=== PATIENT | male | born 1975 | race Caucasian/White ===

== ENCOUNTER → 2016-06-05 | Outpatient (CLI) | payer BC ==
[~2016-06-05] MED LIST: MIDODRINE HCL5 MG PO; MULTI VITAMIN1 EACH PO; PEPCID DPS20 MG PO; SANDOSTATI100 MCG/ML SQ
== END | disposition home or self-care (01) ==
LOC: PTH.S 08:24
DX: K72.10 Chronic hepatic failure without coma (principal)

== ENCOUNTER → 2016-07-04 | Outpatient (CLI) | payer BC | END | disposition home or self-care (01) | LOC: PTH.S 06-29 16:00 | DX: K72.10 Chronic hepatic failure without coma (principal) ==

== ENCOUNTER 2016-07-23 13:48 | Emergency (ER) | payer BC ==
--- NOTE | 2016-07-25 01:33 | ER ---
ADMIT: 07/23/2016 RM/LOC: [facility] MR#: [id number] [facility] [address] [place], [place] [address] JANET VASQUEZ [address] [place] [address] Emergency Room Report SEX: M AGE: 40 : 1975 DATE: 07/23/2016 TIME: 1348 hours. Please refer to my T-sheet for complete H and P. Briefly, the patient is a 40-year-old who has a known history of alcoholic cirrhosis. He has had encephalopathy 2 or 3 times. 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 Comes in this morning. His was gone, she called and arrived at work and he would not answer at home. She went home, found him confused. He had not taken his dose of lactulose this morning, but she gave him the noon dose and brought him in. By the time he gets here, he was feeling better. He says he is having no complaints at this time. PHYSICAL EXAMINATION: VITAL SIGNS: Blood pressure 112/68, pulse 59, respirations 18, temp , saturating 100%. GENERAL: No acute distress. HEENT: Grossly normal. LUNGS: Clear. HEART: Regular. ABDOMEN: Soft. SKIN: No rash except for he is icteric. NEURO: He is alert now nonfocal. EMERGENCY ROOM COURSE: He did complain of a headache. I did do a CT scan that revealed no acute changes except for sinusitis. CBC was normal except hemoglobin 9.7, platelets 127. Hemoglobin is stable. His platelets are slightly lower than they were before. Chemistries normal except glucose 116, creatinine 2.1, AST 101, total bilirubin 7.2, alkaline phosphatase 266 most of which are all within his norm. His INR was 1.38, PT 14.5, PTT 31.3. Ammonia was 30. He took his lactulose while he was here. Again I gave him a second dose, he was doing much better. I had a long discussion. He was ready for discharge. ASSESSMENT: 1. Confusion, resolved. 2. Hepatic encephalopathy. Improved now with his lactulose. 3. Thrombocytopenia which is a little worse than usual. 4. Nicotine abuse. 5. Sinusitis. PLAN: Stop smoking. Amoxil 500 t.i.d. for 7 days. Return if worse. Take his medications as directed. See Dr. Monteiro this week. Ramana Cormier MD/ modl JOB #: [id number] CC: Ramana Cormier MD, Attending Physician ADMIT: 07/23/2016 RM/LOC: [facility] MR#: [id number] [address] [id number] JANET VASQUEZ [address] [place] [address] [place] [address] Emergency Room Report SEX: M AGE: 40 : 1975 Jered Monteiro DO, Family Physician
== END 2016-07-23 15:20 | disposition home or self-care (01) ==
LOC: ER 13:48
DX: K72.90 Hepatic failure, unspecified without coma (principal); D69.6 Thrombocytopenia, unspecified; J32.9 Chronic sinusitis, unspecified; F17.210 Nicotine dependence, cigarettes, uncomplicated; Z98.890 Other specified postprocedural states

== ENCOUNTER → 2016-08-01 | Outpatient (CLI) | payer BC | END | disposition home or self-care (01) | DX: K72.10 Chronic hepatic failure without coma (principal) ==

== ENCOUNTER → 2016-09-04 | Outpatient (CLI) | payer BC | END | disposition home or self-care (01) | LOC: PTH.S 09:34 | DX: K72.10 Chronic hepatic failure without coma (principal) ==

== ENCOUNTER → 2016-09-28 | Outpatient (CLI) | payer BC | END | disposition home or self-care (01) | LOC: PTH.S 09-20 15:00 | DX: K72.10 Chronic hepatic failure without coma (principal); Z94.4 Liver transplant status ==